=== PATIENT | male | born 1955 | race Caucasian/White ===

== ENCOUNTER 2017-08-17 05:55 | Day surgery (SDC) | payer OTHER ==
[~2017-08-17] VITALS: Ht 175.3 cm; Wt 79.6 kg
[~2017-08-17 05:55] MED LIST: CeFAZolin 1 GM/DEXTROSE 50 ML IV ONE; METF500T4 PO; SODIUM CHLORIDE 0.9% 1,000 ML IV ONE
[2017-08-17] MEDS ORDERED: 0.9% SODIUM CHLORIDE 10 ML VIAL IVP ONE (05:56)
[2017-08-17] MEDS ORDERED: METOCLOPRAMIDE HCL 5 MG/ML 2 ML VIAL IVP ONE (05:56)
[2017-08-17] MEDS ORDERED: KETOROLAC TROMETHAMINE 60 MG/2 ML VIAL IM ONE (05:56)
[2017-08-17] MEDS ORDERED: MIDAZOLAM HCL 2 MG/2 ML VIAL IVP ONE (05:56)
[2017-08-17] MEDS ORDERED: FentaNYL CITRATE-PF 100 MCG/2 ML VIAL IVP ONE (05:56)
[2017-08-17] MEDS ORDERED: DEXAMETHASONE SOD PHOS 4 MG/ML VIAL IVP ONE (05:56)
[2017-08-17] MEDS ORDERED: ONDANSETRON HCL 4 MG/2 ML VIAL IVP ONE (05:56)
[2017-08-17] MEDS ORDERED: PROPOFOL 1% 20 ML VIAL IVP ONE (05:56)
[2017-08-17 06:58] LABS: BASOPHILS % (AUTO) 0.3 % (0.0-2.0); EOSINOPHILS % (AUTO) 0.6 % (1.0-6.0); HEMATOCRIT 37.4 % (41-53); HEMOGLOBIN 12.7 g/dL (13.5-17.5); LYMPHOCYTES # (AUTO) 1.3 K/uL (1.0-4.8); MEAN CORPUSCULAR HEMOGLOBIN 28.4 pg (26.0-34.0); MEAN CORPUSCULAR HGB CONC 33.9 G/dL (31.0-37.0); MEAN CORPUSCULAR VOLUME 84 fL (80-100); MONOCYTES # (AUTO) 0.8 K/uL (0.1-1.0); MONOCYTES % (AUTO) 8.5 % (2.0-9.0); NEUTROPHILS # (AUTO) 7.2 K/uL (1.8-7.7); NEUTROPHILS % (AUTO) 76.6 % (40.0-70.0); PLATELET COUNT (AUTO) 244 K/uL (150-450); RED BLOOD CELL COUNT(AUTO) 4.46 MIL/uL (4.50-5.90); RED CELL DISTRIBUTION WIDTH 12.6 % (11.5-14.5); WHITE BLOOD COUNT (AUTO) 9.3 K/uL (4.5-11.0)
[2017-08-17 07:09] LABS: ALANINE AMINOTRANSFERASE 40 U/L (12-78); ALBUMIN 3.5 g/dL (3.4-5.0); ANION GAP 10 mmol/L (8-16); ASPARTATE AMINOTRANSFERASE 20 U/L (15-37); BILIRUBIN,TOTAL 0.8 mg/dL (0.1-1.0); CALCIUM, TOTAL 9.4 mg/dL (8.8-10.5); CARBON DIOXIDE 27 mmol/L (22-29); CHLORIDE 102 mmol/L (98-107); CREATININE 1.09 mg/dL (0.60-1.30); GLOMERULAR FILTR. RATE CALC > 60 mL/min (>60); POTASSIUM 4.3 mmol/L (3.5-5.1); SODIUM SERUM 139 mmol/L (136-145); TOTAL PROTEIN, SERUM 6.9 g/dL (6.4-8.2); UREA NITROGEN, BLOOD 19 mg/dL (7-18)
[2017-08-17] MEDS ORDERED: CeFAZolin 1 GM/DEXTROSE 50 ML IV ONE (07:30)
[2017-08-17] MEDS ORDERED: SODIUM CHLORIDE 0.9% 1,000 ML IV ONE (07:30)
[2017-08-17] MEDS ORDERED: LORazepam 2 MG/ML VIAL IVP PRN (07:30)
[2017-08-17] MEDS ORDERED: IOVERSOL 350 MG/ML 100 ML VIAL ONE (07:56)
[2017-08-17] MEDS ORDERED: HYDROmorphone 2 MG/ML SYRINGE IVP PRN ×2 (12:15→12:45)
[2017-08-17] MEDS ORDERED: FentaNYL CITRATE-PF 100 MCG/2 ML VIAL IVP PRN (12:15)
[2017-08-17] MEDS ORDERED: MEPERIDINE-PF 25 MG/ML SYRINGE IVP PRN (12:15)
[2017-08-17] MEDS ORDERED: SODIUM CHLORIDE 0.9% 1,000 ML IV SCH (12:43)
[2017-08-17] MEDS ORDERED: OxyCODONE HCL/ACETAMINOPHEN 5-325 MG TABLET PO PRN ×2 (12:45)
[2017-08-17] MEDS ORDERED: ACETYLCYSTEINE IV ONE (12:45)
[2017-08-17] MEDS ORDERED: WATER IV ONE (12:45)
[2017-08-17] MEDS ORDERED: DEXTROSE 5% IV ONE (12:45)
[2017-08-17] MEDS ORDERED: OxyCODONE HCL/ACETAMINOPHEN 5-325 MG TABLET PO ONE (12:45)
[2017-08-17] MEDS ORDERED: HYDROmorphone HCL 2 MG TABLET PO ONE (12:45)
[2017-08-17] MEDS ORDERED: OXYGEN THERAPY IH SCH (20:00)
== END 2017-08-17 15:00 | disposition home or self-care (01) ==
LOC: SURGERY 05:55 → EDSTATUS 07:30 → SURGERY 15:00
PROVIDERS: ATTEND Radiology Diagnostic Radiology
DX: C22.7 Other specified carcinomas of liver (principal); C79.51 Secondary malignant neoplasm of bone; Z72.89 Other problems related to lifestyle; Z79.899 Other long term (current) drug therapy; Z98.890 Other specified postprocedural states; Z85.038 Personal history of other malignant neoplasm of large intestine
CPT/HCPCS: 20983; 36415; 47383; 74176; 80053; 85025; 88305; 88311; 88313; 88342; C2618; J0132; J0690; J1100; J1885; J2250; J2405; J2704; J2765; J3010; J7030; J7060; Q9967; 77013; 88341

== ENCOUNTER 2018-03-04 05:56 | Day surgery (SDC) | payer OTHER ==
[~2018-03-04] VITALS: Ht 175.3 cm; Wt 75.0 kg
[~2018-03-04 05:56] MED LIST changes: -CeFAZolin 1 GM/DEXTROSE 50 ML IV ONE; -METF500T4 PO; +METF500T6 PO; -SODIUM CHLORIDE 0.9% 1,000 ML IV ONE
[2018-03-04] MEDS ORDERED: LIDOCAINE HCL/PF 2% 5 ML VIAL INJ ONE (05:57)
[2018-03-04] MEDS ORDERED: PROPOFOL 1% 20 ML VIAL IVP ONE (05:57)
[2018-03-04] MEDS ORDERED: KETAMINE HCL 50 MG/ML 10 ML VIAL IVP ONE (05:57)
[2018-03-04] MEDS ORDERED: ESMOLOL HCL 10 MG/ML 10 ML VIAL IVP ONE (05:57)
[2018-03-04] MEDS ORDERED: FentaNYL CITRATE-PF 100 MCG/2 ML VIAL IVP ONE (05:57)
[2018-03-04] MEDS ORDERED: MIDAZOLAM HCL 2 MG/2 ML VIAL IVP ONE (05:57)
[2018-03-04] MEDS ORDERED: LORazepam 2 MG/ML VIAL IVP PRN (06:00)
[2018-03-04] MEDS ORDERED: SODIUM CHLORIDE 0.9% 1,000 ML IV SCH ×2 (06:00→10:20)
[2018-03-04] MEDS ORDERED: SODIUM CHLORIDE 0.9% 1,000 ML IV ONE (06:11)
[2018-03-04] MEDS ORDERED: ACETAMINOPHEN 1000 MG/ISO-OSM 100 ML IV SCH (06:45)
[2018-03-04] MEDS ORDERED: ACETAMINOPHEN 1000 MG/ISO-OSM 100 ML IV ONE (06:46)
[2018-03-04] MEDS ORDERED: RINGERS SOLUTION,LACTATED 0 ML IV ONE (06:48)
[2018-03-04] MEDS ORDERED: PROPOFOL 1000 MG/ISO-OSM 100 ML IV ONE (06:48)
[2018-03-04 06:55] LABS: BASOPHILS % (AUTO) 0.9 % (0.0-2.0); EOSINOPHILS % (AUTO) 0.9 % (1.0-6.0); HEMATOCRIT 36.4 % (41-53); HEMOGLOBIN 12.2 g/dL (13.5-17.5); LYMPHOCYTES # (AUTO) 1.3 K/uL (1.0-4.8); LYMPHOCYTES % (AUTO) 14.2 % (22.0-44.0); MEAN CORPUSCULAR HEMOGLOBIN 26.7 pg (26.0-34.0); MEAN CORPUSCULAR HGB CONC 33.6 G/dL (31.0-37.0); MEAN CORPUSCULAR VOLUME 79 fL (80-100); MONOCYTES # (AUTO) 0.8 K/uL (0.1-1.0); MONOCYTES % (AUTO) 8.8 % (2.0-9.0); NEUTROPHILS % (AUTO) 75.2 % (40.0-70.0); PLATELET COUNT (AUTO) 264 K/uL (150-450); RED BLOOD CELL COUNT(AUTO) 4.58 MIL/uL (4.50-5.90); RED CELL DISTRIBUTION WIDTH 15.4 % (11.5-14.5)
[2018-03-04 07:03] LABS: ANION GAP 9 mmol/L (8-16); CALCIUM, TOTAL 8.7 mg/dL (8.8-10.5); CARBON DIOXIDE 26 mmol/L (22-29); CHLORIDE 106 mmol/L (98-107); CREATININE 1.04 mg/dL (0.60-1.30); GLOMERULAR FILTR. RATE CALC > 60 mL/min (>60); GLUCOSE,RANDOM 115 mg/dL (70-110); POTASSIUM 4.8 mmol/L (3.5-5.1); SODIUM SERUM 141 mmol/L (136-145); UREA NITROGEN, BLOOD 23 mg/dL (7-18)
[2018-03-04 07:07] LABS: PROTHROMBIN TIME 10.5 SEC (9.4-11.6)
[2018-03-04 07:11] LABS: ALANINE AMINOTRANSFERASE 21 U/L (12-78); ALBUMIN 3.6 g/dL (3.4-5.0); ALKALINE PHOSPHATASE 189 U/L (46-116); ASPARTATE AMINOTRANSFERASE 22 U/L (15-37); BILIRUBIN,TOTAL 0.5 mg/dL (0.1-1.0); TOTAL PROTEIN, SERUM 6.8 g/dL (6.4-8.2)
[2018-03-04] MEDS ORDERED: IOVERSOL 350 MG/ML 100 ML VIAL ONE (07:35)
[2018-03-04] MEDS ORDERED: SODIUM CHLORIDE 0.9% 100 ML ONE (07:35)
[2018-03-04] MEDS ORDERED: LIDOCAINE HCL/PF 1% 30 ML VIAL ONE (08:22)
[2018-03-04] MEDS ORDERED: HYDROmorphone 2 MG/ML SYRINGE IVP PRN ×2 (10:30→11:00)
[2018-03-04] MEDS ORDERED: HYDROmorphone HCL 2 MG TABLET PO ONE (10:30)
[2018-03-04] MEDS ORDERED: OxyCODONE HCL/ACETAMINOPHEN 5-325 MG TABLET PO PRN ×2 (10:30)
[2018-03-04] MEDS ORDERED: HYDROmorphone 2 MG/ML SYRINGE ONE (10:40)
[2018-03-04] MEDS ORDERED: KETOROLAC TROMETHAMINE 30 MG/ML VIAL ONE (10:52)
[2018-03-04] MEDS ORDERED: LABETALOL HCL 5 MG/ML 20 ML VIAL IVP ONE ×2 (10:59→11:00)
[2018-03-04] MEDS ORDERED: KETOROLAC TROMETHAMINE 30 MG/ML VIAL IVP ONE (11:00)
[2018-03-04] MEDS ORDERED: MEPERIDINE HCL/PF 25 MG/0.5 ML AMP IVP PRN (11:00)
[2018-03-04 11:02] VITALS: BP 205/116
[2018-03-04] MEDS ORDERED: FentaNYL CITRATE-PF 100 MCG/2 ML VIAL ONE (11:03)
[2018-03-04] MEDS: FentaNYL CITRATE-PF 100 MCG/2 ML VIAL IVP PRN ×2 (11:04→11:10)
[2018-03-04] MEDS ORDERED: HydrALAZINE HCL 20 MG/ML VIAL IVP ONE (11:15)
[2018-03-04] MEDS ORDERED: SODIUM CHLORIDE 0.9% 500 ML IV ONE (11:27)
[2018-03-04] MEDS ORDERED: HYDROmorphone HCL 2 MG TABLET ONE (11:51)
== END 2018-03-04 12:40 | disposition home or self-care (01) ==
LOC: SURGERY 05:56 → EDSTATUS 07:30 → SURGERY 12:40
PROVIDERS: ATTEND Radiology Diagnostic Radiology
DX: C79.51 Secondary malignant neoplasm of bone (principal); Z85.048 Personal history of other malignant neoplasm of rectum, rectosigmoid junction, and anus; Z79.84 Long term (current) use of oral hypoglycemic drugs; Z85.05 Personal history of malignant neoplasm of liver; Z72.89 Other problems related to lifestyle; Z90.49 Acquired absence of other specified parts of digestive tract; Z98.890 Other specified postprocedural states; Z79.899 Other long term (current) drug therapy
CPT/HCPCS: 20983; 93005; 99152; 99153; C2618; 88307; 88311; J0131; J0360; J1170; J1885; J2250; J2704; J3010; J3490; J7030; J7040; J7050; J7120